=== PATIENT | male | born 1950 | race Caucasian/White ===

== ENCOUNTER → 2018-01-25 07:22 | Outpatient (CLI) | payer BC, SELFPAY ==
[2018-01-25 08:37] LABS: BUN Creatinine Ratio 16.7 (6-22); Blood Urea Nitrogen 20 mg/dL (9-20); Calcium 9.6 mg/dL (8.4-10.2); Carbon Dioxide 28 mmol/L (22-32); Chloride 106 mmol/L (98-107); Cholesterol 261 mg/dL (140-199); Estimated Glomerular Filt Rate > 60.0 mL/min (>60); Glucose 105 mg/dL (80-110); HDL Cholesterol 35 mg/dL (40-60); HEMOLYSIS < 15 (0-50); LDL Cholesterol Calculated 194 mg/dL (<100); Potassium 4.2 mmol/L (3.4-5.1); Sodium 146 mmol/L (137-145); Triglycerides 160 mg/dL (35-150)
== END ==
PROVIDERS: PCP Internal Medicine; Visit Provider Internal Medicine
DX: E78.00 Pure hypercholesterolemia, unspecified (principal); I10 Essential (primary) hypertension
CPT/HCPCS: 36415; 80048; 80061

== ENCOUNTER → 2018-02-05 08:37 | Outpatient (CLI) | payer BC, SELFPAY ==
--- NOTE | 2018-02-05 | DI.US.S_ITS ---
PROCEDURE: US CAROTID DOPPLER BI INDICATIONS: LEFT CAROTID STENOSIS TECHNIQUE: Color and pulse Doppler interrogation was performed of both carotid systems, with image documentation and velocity measurements. COMPARISON: None. FINDINGS: Stenosis calculations are based on SRU (Society of Radiologists in Ultrasound) criteria. Right side: Brachial blood pressure: 162/87 mm Hg. Common carotid artery peak systolic velocity: 82 cm/sec. Internal carotid artery peak systolic velocity: 73 cm/sec. Internal carotid artery end diastolic velocity: 27 cm/sec. External carotid artery peak systolic velocity: 117 cm/sec. ICA/CCA peak systolic ratio: 0.9. Escobar scale imaging description: Moderate scattered plaque. Percent internal carotid artery stenosis: Less than 50%. Vertebral artery: Flow direction is antegrade. Left side: Brachial blood pressure: 169/86 mm Hg. Common carotid artery peak systolic velocity: 134 cm/sec. Internal carotid artery peak systolic velocity: 88 cm/sec. Internal carotid artery end diastolic velocity: 34 cm/sec. External carotid artery peak systolic velocity: 140 cm/sec. ICA/CCA peak systolic ratio: 0.7. Escobar scale imaging description: Moderate scattered plaque. Percent internal carotid artery stenosis: Less than 50% stenosis. Vertebral artery: Flow direction is antegrade. IMPRESSION: Less than 50% bilateral internal carotid artery stenosis. Mild hypertension at time of examination. Dictated by: Giuliano BROOKS Interpreted: Louis Cooney MD on 02/05/2018 at 9:38 Approved by: Louis Cooney M.D. on 02/05/2018 at 10:17
== END ==
PROVIDERS: PCP Internal Medicine; Visit Provider Internal Medicine
DX: I65.23 Occlusion and stenosis of bilateral carotid arteries (principal)
CPT/HCPCS: 93880

== ENCOUNTER → 2018-10-08 07:32 | Outpatient (CLI) | payer BC, SELFPAY ==
[2018-10-08 09:36] LABS: Alanine Aminotransferase 34 IU/L (21-72); Aspartate Aminotransferase 26 IU/L (17-59); Blood Urea Nitrogen 21 mg/dL (9-20); Calcium 9.2 mg/dL (8.4-10.2); Carbon Dioxide 28 mmol/L (22-32); Chloride 103 mmol/L (98-107); Cholesterol 156 mg/dL (140-199); Estimated Glomerular Filt Rate > 60.0 mL/min (>60); Glucose 106 mg/dL (80-110); HDL Cholesterol 36 mg/dL (40-60); LDL Cholesterol Calculated 93 mg/dL (<100); Potassium 3.8 mmol/L (3.4-5.1); Sodium 142 mmol/L (137-145); Triglycerides 134 mg/dL (35-150)
[2018-10-08 13:36] LABS: HEMOLYSIS 36 (0-50); Prostate Specific Antigen Scrn 1.29 ng/mL (0.1-4.0)
== END ==
PROVIDERS: PCP Internal Medicine; Visit Provider Internal Medicine
DX: Z00.00 Encounter for general adult medical examination without abnormal findings (principal); I10 Essential (primary) hypertension; E78.00 Pure hypercholesterolemia, unspecified
CPT/HCPCS: 36415; 80048; 80061; 84450; 84460; G0103

== ENCOUNTER 2019-01-16 11:34 | Day surgery (SDC) | payer BC, SELFPAY ==
--- NOTE | 2019-01-16 | PATH_ITS ---
[facility] Accession Number: [id number] . 01 Material submitted: . PART A: gastrointestinal site - BIOPSY STOMACH PART B: esophagus - BIOPSY ESOPHAGUS . 01 Clinical history: . A. FOR H. PYLORI B. FOR GARCIA'S . 02 Diagnosis: A. Biopsy, Stomach: Mucosal hyperemia without associated significant inflammation involving fundic mucosa. Negative for evidence of Helicobacter on H/E stain. Negative for intestinal metaplasia. Negative for dysplasia and malignancy. . B. Biopsy, Esophagus: Fragment of gastric fundic-type mucosa with changes consistent with benign fundic gland polyp. No squamocolumnar junctional mucosa identified. Negative for intestinal metaplasia. Negative for dysplasia and malignancy. [facility]/01/17/2019 . 02 Electronically signed: . Soto Killian MD, Pathologist NPI- [id number] . 01 Gross description: . Part A: BIOPSY STOMACH: Received in formalin is 1 fragment(s) of gaston, soft tissue measuring 0.3 x 0.2 x 0.2 cm which is entirely submitted and submitted entirely in 1 cassette(s) Part B: BIOPSY ESOPHAGUS: Received in formalin is 1 fragment(s) of gaston, soft tissue measuring 0.3 x 0.2 x 0.2 cm which is entirely submitted and submitted entirely in 1 cassette(s) /D[facility] /[facility] . 02 Pathologist provided ICD-10: K31.7 . 02 CPT . 578743, 911238 Performed at: 01 [facility] [address] [id number] MD Cachorro Jaeger MD Phone: [phone] Performed at: 02 [facility] [address] [place], [place] [id number] MD Ade Joseph MD Phone: [phone]
[2019-01-16] MEDS: SODIUM CHLORIDE 0.9% 1,000 ML 42 ML IV (12:11)
[2019-01-16 12:20] VITALS: BP 161/85; PULSE 65; RESP 15; TEMP 36.7; O2SAT 98; BMI 27.1
--- NOTE | 2019-01-16 12:56 | PM.HP.1 ---
History of Present Illness History of Present Illness Date Patient Seen: 01/16/19 Time Patient Seen: 12:57 Chief complaint: [id number] Narrative: Dysphagia and history of polyps Patient History Medical History (Updated 01/16/19 @ 12:23 by Maribell Padilla, RN) Gastric reflux (Acute) Hypertension (Acute) Kidney stones (Acute) Normal cardiac stress test (Acute) Sinus drainage (Acute) Surgical History (Updated 01/16/19 @ 12:20 by Maribell Padilla RN) History of carpal tunnel release (Acute ~04/2017) History of colonoscopy (Acute) History of esophagogastroduodenoscopy (EGD) (Acute) History of total hip arthroplasty (Acute) Family History (Updated 12/08/14 @ 00:00 by Conversion Provider) Father Angina pectoris Social History household members: significant other Family & Social History Family History (Updated 12/08/14 @ 00:00 by Conversion Provider) Father Angina pectoris Social History: household members significant other Meds Home Medications and Allergies Home Medications Medication Instructions Recorded Confirmed Type metoprolol tartrate 50 tab PO QDAY #180 tab 01/19/16 01/16/19 Rx esomeprazole magnesium [Nexium] 40 mg PO DAILY 01/16/19 01/16/19 History losartan 50 mg PO DAILY 01/16/19 01/16/19 History zolpidem 5 mg PO HS PRN 01/16/19 01/16/19 History Exam Vital Signs (past 8 hours): - 01/16/19 12:20 Temperature 98.1 F Pulse Rate 65 Respiratory Rate 15 Blood Pressure 161/85 H Pulse Oximetry 98 Oxygen Delivery Method Room Air Narrative Exam Narrative: Oropharynx free of lesions Chest clear to auscultation percussion Cardiac exam reveals no S3 or murmur Assessment & Plan Assessment & Plan narrative: Need for upper endoscopy and colonoscopy. Risks, benefits, alternatives have been explained. Further recommendations will follow the results of those studies which may include doing an esophageal dilation
--- NOTE | 2019-01-16 12:58 | P.OP.ENDO_ITS ---
Operative Date/Time/Diagnoses Date of procedure: 01/16/19 Time of procedure: 12:58 Pre-op diagnosis: See indication and findings Procedure & Clinicians Study performed: EGD Same procedure as scheduled: Yes Indications: Dysphagia Surgeon: Jagdish Small
--- NOTE | 2019-01-16 12:58 | PM.OP.ENDO ---
Operative Date/Time/Diagnoses Date of procedure: 01/16/19 Time of procedure: 12:58 Pre-op diagnosis: See indication and findings Procedure & Clinicians Study performed: EGD Same procedure as scheduled: Yes Indications: Dysphagia Surgeon: Jagdish Small
[2019-01-16] MEDS: fentaNYL 250 MCG/5 ML INJ IV (13:02)
[2019-01-16] MEDS: MIDAZOLAM 5 MG/5 ML VIAL IV (13:02)
--- NOTE | 2019-01-16 13:14 | PM.OP.ENDO ---
Operative Date/Time/Diagnoses Date of procedure: 01/16/19 Time of procedure: 13:15 Pre-op diagnosis: See indication and findings Procedure & Clinicians Study performed: EGD with biopsy Same procedure as scheduled: Yes Indications: GE reflux with dysphagia Surgeon: Jagdish Small Procedure Notes Procedure in detail: After informed consent was obtained the patient was placed in left lateral decubitus position. The video upper scope was placed into the oropharynx with the patient's health swallowed into the esophagus. The esophagus, stomach, duodenum were carefully examined. On withdrawal, retroflexed view the GE junction was performed. The scope was removed. The patient tolerated the procedure relatively well. Blood loss none Complications none Sedation Total sedation time 12 minutes Versed 10 mg fentanyl 100 micro g IV titration Findings 1. Esophagus with 2 tongues of abnormal tissue less than 1 cm size above the top of the gastric folds at 41 cm. Each was biopsied x1 to rule out Chou's esophagus. 2. Streaky gastric erythema biopsies taken to rule out Helicobacter 3. Normal duodenal bulb and sweep Will be in touch regarding his symptoms and findings. I expect that his trouble swallowing is at least in part from dysmotility caused by reflux as there is no mechanical lesion present.
[2019-01-16 13:20] VITALS: BP 117/67; PULSE 69; RESP 20; TEMP 36.3; O2SAT 93
[2019-01-16 13:25] VITALS: BP 113/65; PULSE 64; RESP 15; TEMP 36.9; O2SAT 97
[2019-01-16 13:30] VITALS: BP 122/74; PULSE 65; RESP 14; O2SAT 96
[2019-01-16 13:34] VITALS: BP 118/60; PULSE 63; RESP 12; TEMP 36.9; O2SAT 98
[2019-01-16 13:49] VITALS: BP 120/70; PULSE 64; RESP 14; O2SAT 98
== END 2019-01-16 13:45 | disposition home or self-care (01) ==
PROVIDERS: PCP Internal Medicine; Visit Provider Internal Medicine Gastroenterology
PROC: 0DJ08ZZ Inspection of Upper Intestinal Tract, Via Natural or Artificial Opening Endoscopic (ICD-10-PCS; CPT 43235; principal; 2019-01-16 13:00)
DX: K21.9 Gastro-esophageal reflux disease without esophagitis (principal); R13.10 Dysphagia, unspecified; K22.8 Other specified diseases of esophagus; K31.89 Other diseases of stomach and duodenum; I10 Essential (primary) hypertension
CPT/HCPCS: 43239; J2250; J3010

== ENCOUNTER 2019-02-13 13:55 | Day surgery (SDC) | payer BC, SELFPAY ==
[2019-02-13] VITALS (7 sets, daily range): BP systolic 103–181; BP diastolic 58–89; PULSE 58–66; RESP 12–16; TEMP 36.4–37; O2SAT 94–97; BMI 27.2
--- NOTE | 2019-02-13 | PATH_ITS ---
[facility] Accession Number: [id number] . 01 Material submitted: . colon - DESCENDING COLON POLYP . 02 Diagnosis: Descending Colon, Polyp, Biopsy: Tubular adenoma. [facility]V 02/15/2019 1007 Local . 02 Electronically signed: . Ade Joseph MD, Pathologist NPI- [id number] . 01 Gross description: . DESCENDING COLON POLYP: Received in formalin is 1 fragment(s) of gaston, soft tissue measuring 0.2 x 0.2 x 0.2 cm which is entirely submitted and submitted entirely in 1 cassette(s) /[facility] 02/14/2019 1626 Local . 02 Pathologist provided ICD-10: D12.4 . 02 CPT . 841259 Performed at: 01 [facility] [address] [id number] MD Cachorro Jaeger MD Phone: [phone] Performed at: 02 [facility] [address] [place], [place] [id number] MD Ade Joseph MD Phone: [phone]
[2019-02-13] MEDS: SODIUM CHLORIDE 0.9% 1,000 ML 42 ML IV (14:35)
--- NOTE | 2019-02-13 15:33 | PM.HP.1 ---
History of Present Illness History of Present Illness Date Patient Seen: 02/13/19 Chief complaint: [id number] Narrative: History of colon polyps Patient History Medical History (Updated 01/16/19 @ 12:23 by Maribell Padilla RN) Gastric reflux (Acute) Hypertension (Acute) Kidney stones (Acute) Normal cardiac stress test (Acute) Sinus drainage (Acute) Surgical History (Updated 01/16/19 @ 12:20 by Maribell Padilla RN) History of carpal tunnel release (Acute ~04/2017) History of colonoscopy (Acute) History of esophagogastroduodenoscopy (EGD) (Acute) History of total hip arthroplasty (Acute) Family History (Updated 12/08/14 @ 00:00 by Conversion Provider) Father Angina pectoris Social History household members: significant other Family & Social History Family History (Updated 12/08/14 @ 00:00 by Conversion Provider) Father Angina pectoris Social History: household members significant other Meds Home Medications and Allergies Home Medications Medication Instructions Recorded Confirmed Type metoprolol tartrate 50 tab PO QDAY #180 tab 01/19/16 01/16/19 Rx esomeprazole magnesium [Nexium] 40 mg PO DAILY 01/16/19 01/16/19 History losartan 50 mg PO DAILY 01/16/19 01/16/19 History zolpidem 5 mg PO HS PRN 01/16/19 01/16/19 History Allergies Allergy/AdvReac Type Severity Reaction Status Date / Time No Known Drug Allergies Allergy Verified 01/16/19 13:32 Exam Vital Signs (past 8 hours): - 02/13/19 14:22 Temperature 97.6 F Pulse Rate 61 Respiratory Rate 15 Blood Pressure 181/89 H Pulse Oximetry 97 Oxygen Delivery Method Room Air Narrative Exam Narrative: Oropharynx free of lesions Chest clear to auscultation percussion Cardiac exam reveals no S3 or murmur Assessment & Plan Assessment & Plan narrative: History of adenomatous colon polyps need for follow-up colonoscopy. Risks, benefits, alternatives have been explained.
--- NOTE | 2019-02-13 15:34 | PM.OP.ENDO ---
Operative Date/Time/Diagnoses Date of procedure: 02/13/19 Pre-op diagnosis: See indication and findings Procedure & Clinicians Study performed: Colonoscopy Same procedure as scheduled: Yes Indications: History of colon polyps Surgeon: Jagdish Small Procedure Notes Procedure in detail: After informed consent was obtained the patient was placed in left lateral decubitus position. The video colonoscope was introduced the rectum slowly advanced to the cecum. Preparation was good. On slow withdrawal mucosa was carefully examined. Scope was removed. The patient tolerated procedure well. Blood loss none Complications none Sedation Total sedation time is 16 minutes Versed 8 mg fentanyl 200 mg IV titration Findings 1. 5 mm polyp in the descending colon Jumbo biopsy removed completely 2. Otherwise negative colonoscopy to cecum If this polyp is adenomatous he will need follow-up colonoscopy in 5 years.
[2019-02-13] MEDS: fentaNYL 250 MCG/5 ML INJ IV (16:01)
[2019-02-13] MEDS: MIDAZOLAM 5 MG/5 ML VIAL IV (16:01)
== END 2019-02-13 16:58 | disposition home or self-care (01) ==
LOC: ENDO 13:57
PROVIDERS: PCP Internal Medicine; Visit Provider Internal Medicine Gastroenterology
PROC: 0DJD8ZZ Inspection of Lower Intestinal Tract, Via Natural or Artificial Opening Endoscopic (ICD-10-PCS; CPT 45378; principal; 2019-02-13 15:00)
DX: Z86.010 Personal history of colon polyps (principal); I10 Essential (primary) hypertension; D12.4 Benign neoplasm of descending colon
CPT/HCPCS: 45380; J2250; J3010

== ENCOUNTER → 2019-02-20 07:40 | Outpatient (CLI) | payer BC, SELFPAY ==
--- NOTE | 2019-02-20 | DI.US.S_ITS ---
PROCEDURE: US ABDOMEN COMPLETE INDICATIONS: RIGHT UPPER QUADRANT PAIN TECHNIQUE: Real-time scanning was performed of the abdominal and retroperitoneal organs, with image documentation. COMPARISON: [place], [place], PET/CT SKULL BASE TO MID THIGH, 10/09/2015, 10:36. [facility], , ABDOMEN COMPLETE, 11/13/2015, 17:54. FINDINGS: Liver: Liver is diffusely increased in echogenicity. No focal hepatic abnormalities identified. Normal hepatic size. Focal fatty sparing adjacent to the gallbladder. Gallbladder: Multiple gallstones and sludge present. No gallbladder wall thickening or pericholecystic fluid. Negative sonographic Toussaint sign. Biliary ducts: Intrahepatic bile ducts are non-dilated. Extrahepatic bile duct caliber measures 7.0 mm. Normal is 6-7 mm or less in diameter, or 10 mm or less post-cholecystectomy. Pancreas: Visualized portions of the pancreas are sonographically normal. Spleen: Spleen is normal in size and homogeneous in echotexture. Kidneys: Kidneys are normal in size and echotexture. Right kidney measures 11.3 cm long; left kidney measures 11.4 cm long. No hydronephrosis. 2 nonobstructing right renal calculi present. 2 left renal cysts present the largest of which has a thin septation and measures 3.8 x 4.8 x 5.1 cm which has increased in size from prior examination (previously 3.8 x 3.5 x 3.3 cm) and the smaller measuring roughly 1.3 x 1.1 x 1.4 cm. Aorta: Visualized aorta is normal in caliber at less than 3 cm. Iliacs: Proximal common iliac arteries are normal in caliber at less than 2.5 cm. IVC: Intrahepatic inferior vena cava is patent. Miscellaneous: No free abdominal fluid. IMPRESSION: 1. Increased hepatic echogenicity noted possibly related to hepatic steatosis but other sources of hepatocellular disease cannot be excluded. 2. Cholelithiasis without acute cholecystitis. 3. Nonobstructing right renal calculi. Dictated by: Giuliano BROOKS Interpreted: Go Anderson MD on 02/20/2019 at 10:13 Approved by: Go Anderson M.D. on 02/20/2019 at 11:31
== END ==
PROVIDERS: PCP Internal Medicine; Visit Provider Internal Medicine
DX: R10.11 Right upper quadrant pain (principal); K80.20 Calculus of gallbladder without cholecystitis without obstruction; N20.0 Calculus of kidney; N28.1 Cyst of kidney, acquired
CPT/HCPCS: 76700

== ENCOUNTER → 2019-11-29 13:30 | Outpatient (CLI) | payer BC, SELFPAY ==
[2019-11-29 14:05] LABS: Urine Drug scr, USCG NIDA See Separate Report
== END ==
PROVIDERS: PCP Internal Medicine
DX: Z02.1 Encounter for pre-employment examination (principal)
CPT/HCPCS: 81099

== ENCOUNTER → 2020-02-10 09:46 | Outpatient (CLI) | payer BC, SELFPAY ==
[2020-02-10 11:31] LABS: Alanine Aminotransferase 36 IU/L (<50); Albumin 4.5 g/dL (3.5-5.0); Albumin Globulin Ratio 1.5 (1.0-2.8); Alkaline Phosphatase 92 U/L (38-126); Aspartate Aminotransferase 30 IU/L (17-59); BUN Creatinine Ratio 16.2 (6-22); Bilirubin Total 1.2 mg/dL (0.2-1.3); Blood Urea Nitrogen 17 mg/dL (9-20); Calcium 9.6 mg/dL (8.4-10.2); Carbon Dioxide 32 mmol/L (22-32); Chloride 103 mmol/L (98-107); Cholesterol 172 mg/dL (140-199); Estimated Glomerular Filt Rate > 60.0 mL/min (>60); Glucose 107 mg/dL (80-110); HDL Cholesterol 37 mg/dL (40-60); HEMOLYSIS < 15 (0-50); LDL Cholesterol Calculated 102 mg/dL (<100); Potassium 5.1 mmol/L (3.4-5.1); Sodium 142 mmol/L (137-145); Total Protein 7.5 g/dL (6.3-8.2); Triglycerides 163 mg/dL (35-150)
== END ==
PROVIDERS: PCP Internal Medicine; Referring Provider Internal Medicine; Visit Provider Internal Medicine
DX: E78.5 Hyperlipidemia, unspecified (principal); I10 Essential (primary) hypertension; Z00.00 Encounter for general adult medical examination without abnormal findings
CPT/HCPCS: 36415; 80053; 80061

== ENCOUNTER → 2020-11-04 07:33 | Outpatient (CLI) | payer MEDICARE, OTHER, SELFPAY ==
[2020-11-04 09:03] LABS: Alanine Aminotransferase 38 IU/L (<50); Albumin 4.1 g/dL (3.5-5.0); Albumin Globulin Ratio 1.6 (1.0-2.8); Alkaline Phosphatase 103 U/L (38-126); Aspartate Aminotransferase 34 IU/L (17-59); BUN Creatinine Ratio 19.3 (6-22); Blood Urea Nitrogen 22 mg/dL (9-20); Calcium 9.5 mg/dL (8.4-10.2); Carbon Dioxide 27 mmol/L (22-32); Chloride 105 mmol/L (98-107); Cholesterol 154 mg/dL (140-199); Estimated Glomerular Filt Rate > 60.0 mL/min (>60); Globulin 2.6 g/dL (1.7-4.1); Glucose 114 mg/dL (80-110); HDL Cholesterol 32 mg/dL (40-60); HEMOLYSIS < 15 (0-50); LDL Cholesterol Calculated 72 mg/dL (<100); Potassium 4.6 mmol/L (3.4-5.1); Sodium 138 mmol/L (137-145); Total Protein 6.7 g/dL (6.3-8.2); Triglycerides 248 mg/dL (35-150); Uric Acid 7.2 mg/dL (3.5-8.5)
[2020-11-05 05:36] LABS: PSA, Total 0.6 ng/mL (0.0-4.0)
== END ==
PROVIDERS: PCP Internal Medicine; Referring Provider Internal Medicine; Visit Provider Internal Medicine
DX: M1A.40X0 Other secondary chronic gout, unspecified site, without tophus (tophi) (principal); I10 Essential (primary) hypertension; E78.00 Pure hypercholesterolemia, unspecified; N40.1 Benign prostatic hyperplasia with lower urinary tract symptoms
CPT/HCPCS: 36415; 80053; 80061; 84153; 84154; 84550

== ENCOUNTER → 2021-01-18 14:45 | Outpatient (CLI) | payer MEDICARE, OTHER, SELFPAY ==
--- NOTE | 2021-01-18 | DI.US.S_ITS ---
PROCEDURE: US ABD AORTA ANEURYSM SCREEN INDICATIONS: SCREEN TECHNIQUE: Real time scanning was performed of the aorta and iliac arteries, with image documentation. COMPARISON: None. FINDINGS: Aorta: Proximal aortic diameter measures 1.6 cm. Mid-aorta measures 1.4 cm. Distal aortic diameter is 1.7 cm. Iliac arteries: Right common iliac artery measures 0.8 cm. Left common iliac artery measures 0.8 cm. IMPRESSION: Unremarkable exam. Dictated by: Wilda Lawson M.D. on 01/18/2021 at 16:42 Approved by: Wilda Lawson M.D. on 01/18/2021 at 16:43
== END ==
PROVIDERS: PCP Internal Medicine; Referring Provider Internal Medicine; Visit Provider Internal Medicine
DX: Z13.6 Encounter for screening for cardiovascular disorders (principal)
CPT/HCPCS: 76706